=== PATIENT | male | born 1960 | race African-American/Black ===

== ENCOUNTER 2022-06-12 12:36 | Inpatient (IN) | payer MEDICARE, OTHER ==
[~2022-06-12] VITALS: Ht 177.8 cm; Wt 108.9 kg
--- NOTE | 2022-06-12 13:12 | NUR ---
COVID SWAB DONE AND SENT TO LAB
--- NOTE | 2022-06-12 13:12 | NUR ---
URINE COLLECTED AND SENT TO LAB
[2022-06-12] MEDS ORDERED: LEVO25TA7 PO (13:13)
[2022-06-12] MEDS ORDERED: CHLO10TA10 PO (13:13)
[2022-06-12] MEDS ORDERED: OLAN15TA3 PO (13:13)
[2022-06-12] MEDS ORDERED: MAGN400O6 PO (13:13)
[2022-06-12] MEDS ORDERED: CLON1TAB12 PO (13:13)
[2022-06-12] MEDS ORDERED: ATOR10TA PO (13:13)
[2022-06-12] MEDS ORDERED: MULT-188 PO (13:13)
[2022-06-12] MEDS ORDERED: BISA10SU11 RC (13:13)
[2022-06-12] MEDS ORDERED: DIVA500T2 PO (13:13)
[2022-06-12] MEDS ORDERED: LEVE1000 PO (13:13)
[2022-06-12 13:24] LABS: BASOPHILS % (AUTO) 0.4 % (0.0-2.0); EOSINOPHILS % (AUTO) 1.9 % (0.0-6.0); HEMATOCRIT 40 % (39-51); HEMOGLOBIN 12.5 g/dL (13.5-17.5); LYMPHOCYTES # (AUTO) 3.1 K/uL (0.8-4.8); LYMPHOCYTES % (AUTO) 37.1 % (20.0-44.0); MEAN CORPUSCULAR HGB CONC 32 g/dl (31.0-36.0); MEAN CORPUSCULAR VOLUME 88 fL (80-96); MONOCYTES # (AUTO) 0.9 K/uL (0.1-1.30); NEUTROPHILS # (AUTO) 4.1 K/uL (1.8-8.9); NEUTROPHILS % (AUTO) 49.6 % (43.0-81.0); PLATELET COUNT (AUTO) 233 K/uL (150-450); RED BLOOD CELL COUNT(AUTO) 4.47 MIL/uL (4.5-6.0); WHITE BLOOD COUNT (AUTO) 8.3 K/uL (4.3-11.0)
[2022-06-12] MEDS ORDERED: LEVETIRACETAM (500MG) 500 MG in IV NS 0.9% 100 ML IV SCH (13:30)
[2022-06-12 13:39] LABS: CARBON DIOXIDE 32 mmol/L (21-32); CHLORIDE 105 mmol/L (98-107); CREATININE 1.3 mg/dL (0.6-1.3); GLUCOSE 82 mg/dL (74-106); POTASSIUM 4.2 mmol/L (3.5-5.1); SODIUM SERUM 142 mmol/L (136-145); UREA NITROGEN, BLOOD 11 mg/dL (7-18)
[2022-06-12 13:44] LABS: BILIRUBIN,URINE NEGATIVE (NEGATIVE); COLOR,URINE YELLOW (YELLOW); LEUKOCYTE ESTERASE ,URINE NEGATIVE (NEGATIVE); NITRITE, URINE NEGATIVE (NEGATIVE); PROTEIN,URINE NEGATIVE (NEGATIVE); UGLUCOSE NEGATIVE (NEGATIVE); UROBILINOGEN,URINE 0.2 EU/dL (0.2)
[2022-06-12 13:45] LABS: ALANINE AMINOTRANSFERASE 20 U/L (12-78); ALBUMIN 3.2 g/dL (3.4-5.0); ALCOHOL, BLOOD < 3 mg/dL (0-0); ALKALINE PHOSPHATASE 93 U/L (46-116); ASPARTATE AMINOTRANSFERASE 19 U/L (15-37); BILIRUBIN,TOTAL 0.2 mg/dL (0.2-1.0); TOTAL PROTEIN, SERUM 7.7 g/dL (6.4-8.2)
--- NOTE | 2022-06-12 13:49 | NUR ---
TROPONIN 76, MD TREJO AWARE
[2022-06-12 13:57] LABS: BILIRUBIN,DIRECT 0.1 mg/dL (0.0-0.2)
[2022-06-12 14:01] LABS: ACETAMINOPHEN < 10 ug/ml (10-30)
--- NOTE | 2022-06-12 14:09 | NUR ---
EPIC PAGED AND MOVESHEET SUBMITTED.
--- NOTE | 2022-06-12 14:15 | NUR ---
NO KNOWN ALLERGIES PER KARIN SHWETA OJEDA
--- NOTE | 2022-06-12 15:40 | NUR ---
GOT BED 328-1
[2022-06-12 16:09] VITALS: BP 132/78
--- NOTE | 2022-06-12 16:10 | NUR ---
REPORT GIVEN TO MONCHO GARCIA FOR YUSEF
--- NOTE | 2022-06-12 16:30 | NUR ---
TRANSFERRED TO BED 328 IN STABLE CONDITION
[2022-06-12] MEDS ORDERED: BISACODYL SUPP (10 MG) 10 MG/SUPP.RECT SUPP.RECT RC PRN (18:00)
[2022-06-12] MEDS ORDERED: ACETAMINOPHEN 325 MG TABLET PO PRN (18:00)
[2022-06-12] MEDS ORDERED: MAGNESIUM HYDROXIDE 30 ML UDC PO PRN ×2 (18:00)
[2022-06-12] MEDS ORDERED: Z GUARD REMEDY 4 OZ OINT TP PRN (18:00)
[2022-06-12] MEDS ORDERED: MAG HYDROX/AL HYDROX/SIMETH 30 ML UDC PO PRN (18:00)
[2022-06-12] MEDS ORDERED: ONDANSETRON HCL/PF 4 MG/2 ML VIAL IVP PRN (18:00)
--- NOTE | 2022-06-12 19:18 | NUR ---
SCALLOP BINDER CLOSING NOTE PATIENT RECEIVED ON UNIT FROM ED @ 1700 [employer]IA [employer]. A/O X2 AND AMBULATES W/O ASSIST. PATIENT NON-COMPLIANT WITH UNSTEADY GATE. REFUSED TO KEEP SPECIMEN TRANSPORTER ON AT THIS TIME. PATIENT IS INCONTINENT AND WEARS DIAPER. UNABLE TO PROPERLY FINISH ADMISSION PROCESS PATIENT IS UNABLE TO COMPLETE SENTENCES. IV ACCES TO R HAND REMAINS INTACT AT HIS TIME. WILL ENDORSE PATIENT TO ONCOMING SHIFT.
--- NOTE | 2022-06-12 19:30 | NUR ---
RN OPENING NOTES RECEIVED PT ROAMING MONROY, REFUSING TO GO BACK TO ROOM. AOx2. ON RA AND TOLERATING WELL. NO DISTRESS NOTED. WILL CONTINUE PLAN OF CARE.
--- NOTE | 2022-06-12 20:00 | NUR ---
RN NOTES PT ATTEMPTED TO GO DOWN STAIRS BUT WAS PERSUADED TO STAY ON FLOOR. PT BECAME AGITATED. CONTACTED TRACK REPAIR WORKER ASUNCION FOR ORDER FOR 1:1 SITTER. TRACK REPAIR WORKER ASUNCION ALSO ORDERED ATIVAN 1 MG IVP Q6HRS PRN FOR AGITATION.
[2022-06-12] MEDS: LORAZEPAM INJ 2 MG/ML VIAL IV PRN (20:56)
--- NOTE | 2022-06-12 20:56 | NUR ---
RN NOTES ADMINISTERED ATIVAN FOR AGITATION PER ORDER.VS WNL.
[2022-06-12] MEDS: LEVETIRACETAM (250 MG) 250 MG TABLET PO SCH (21:42)
[2022-06-12] MEDS ORDERED: ATORVASTATIN 10 MG TABLET PO SCH (22:00)
[2022-06-12] MEDS ORDERED: OLANZAPINE 10 MG TABLET PO SCH (22:00)
[2022-06-13] MEDS: LORAZEPAM INJ 2 MG/ML VIAL IV PRN ×2 (02:59→14:58)
--- NOTE | 2022-06-13 02:59 | NUR ---
RN NOTES ADMINISTERED ATIVAN FOR AGITATION PER ORDER.VS WNL.
--- NOTE | 2022-06-13 06:50 | NUR ---
RN CLOSING NOTES PT IN ROOM, AWAKE, SITTING UPRIGHT IN CHAIR, WITH SITTER AT BEDSIDE. AOx2. ON RA AND TOLERATING WELL. NO DISTRESS NOTED. ALL ORDERS CARRIED OUT. ALL NEEDS MET. PT KEPT CLEAN AND DRY. WILL ENDORSE TO ONCOMING SHIFT FOR YUSEF.
[2022-06-13 07:12] LABS: BASOPHILS % (AUTO) 0.3 % (0.0-2.0); EOSINOPHILS % (AUTO) 1.2 % (0.0-6.0); HEMATOCRIT 39 % (39-51); HEMOGLOBIN 12.3 g/dL (13.5-17.5); LYMPHOCYTES # (AUTO) 2.1 K/uL (0.8-4.8); LYMPHOCYTES % (AUTO) 28.4 % (20.0-44.0); MEAN CORPUSCULAR HGB CONC 32 g/dl (31.0-36.0); MEAN CORPUSCULAR VOLUME 87 fL (80-96); MONOCYTES # (AUTO) 0.7 K/uL (0.1-1.30); MONOCYTES % (AUTO) 9.7 % (2.0-12.0); NEUTROPHILS # (AUTO) 4.6 K/uL (1.8-8.9); NEUTROPHILS % (AUTO) 60.4 % (43.0-81.0); PLATELET COUNT (AUTO) 251 K/uL (150-450); RED BLOOD CELL COUNT(AUTO) 4.48 MIL/uL (4.5-6.0); WHITE BLOOD COUNT (AUTO) 7.5 K/uL (4.3-11.0)
[2022-06-13 07:34] LABS: CALCIUM, SERUM 8.9 mg/dL (8.5-10.1); CREATININE 1.2 mg/dL (0.6-1.3); PHOSPHORUS 3.5 mg/dL (2.5-4.9); POTASSIUM 4.1 mmol/L (3.5-5.1)
[2022-06-13] MEDS: LEVETIRACETAM (250 MG) 250 MG TABLET PO SCH (08:09)
[2022-06-13] MEDS: DIVALPROEX SODIUM 500 MG TABLET.DR PO SCH ×3 (08:09→13:26)
[2022-06-13] MEDS: clonazePAM 1 MG TABLET PO SCH ×3 (08:10→13:26)
[2022-06-13] MEDS ORDERED: chlorproMAZINE HCL 10 MG TABLET PO SCH (09:00)
[2022-06-13] MEDS ORDERED: MULTIVIT W/MINERALS 1 TAB TABLET PO SCH (09:00)
[2022-06-13] MEDS ORDERED: ASPIRIN 81 MG TAB.CHEW PO SCH (09:00)
[2022-06-13] MEDS ORDERED: LEVOTHYROXINE SODIUM 100 MCG TABLET PO SCH (09:00)
[2022-06-13] MEDS ORDERED: ASPI-1169 PO (11:43)
--- NOTE | 2022-06-13 13:00 | NUR ---
RN NOTES PATIENT CURRENTLY ASLEEP IN NEVILLE CHAIR WITH SITTER AT BEDSIDE. RESPONDS TO VERBAL AND PHYSICAL STIMULI. PATIENT IS TOO LETHARGIC TO TAKE MEDITATION AT THIS TIME. WILL CONTINUE MONITORING
--- NOTE | 2022-06-13 15:35 | NUR ---
STERILISATION TECHNICIAN NOTES PATIENT MEDICALLY STABLE FOR DISCHARGE. VSS. DISCHARGE INSTRUCTIONS PROVIDED TO NURSE TAKING OVER CARE. EXIT PACKET PROVIDED. IV ACCESS REMOVED AND ID BAND REMOVED. ALL BELONGINGS ACCOUNTED FOR AND DOCUMENTS SIGNED. PATIENT TRANSFERRED TO GPS UNIT ACCOMPANIED BY NURSE AND RV REPAIRER.
== END 2022-06-13 15:41 | DRG 280 ==
LOC: ER 12:40 → TELE 15:37 → MED 06-13 11:55
PROVIDERS: ADMIT Internal Medicine; ATTEND Internal Medicine
DX: I21.4 Non-ST elevation (NSTEMI) myocardial infarction (principal); E43 Unspecified severe protein-calorie malnutrition; E11.9 Type 2 diabetes mellitus without complications; G40.909 Epilepsy, unspecified, not intractable, without status epilepticus; F20.9 Schizophrenia, unspecified; E78.5 Hyperlipidemia, unspecified; F32.A Depression, unspecified; Z79.899 Other long term (current) drug therapy; F29 Unspecified psychosis not due to a substance or known physiological condition; E88.09 Other disorders of plasma-protein metabolism, not elsewhere classified; E03.9 Hypothyroidism, unspecified; Z79.890 Hormone replacement therapy; I10 Essential (primary) hypertension
CPT/HCPCS: 36415; 71045-TC; 80048-TC; 80076-TC; 80164-TC; 83735-TC; 84100-TC; 84484-TC; 85025-TC; 87081-TC; C9803; G0378; G0480; J1953; J2060; J7030

== ENCOUNTER 2022-06-13 16:42 | Inpatient (IN) | payer MEDICARE, OTHER ==
[~2022-06-13] VITALS: Ht 177.8 cm; Wt 108.9 kg
[~2022-06-13 16:42] MED LIST: ASPI-1169 PO; ATOR10TA PO; BISA10SU11 RC; CHLO10TA10 PO; CLON1TAB12 PO; DIVA500T2 PO; LEVE1000 PO; LEVO25TA7 PO; MAGN400O6 PO; MULT-188 PO; OLAN15TA3 PO
[2022-06-13] MEDS ORDERED: ACETAMINOPHEN 325 MG TABLET PO PRN (17:00)
[2022-06-13] MEDS ORDERED: BLOOD SUGAR DIAGNOSTIC 1 EACH STRIP IN ONE (17:00)
[2022-06-13] MEDS ORDERED: TEMAZEPAM 7.5 MG CAPSULE PO PRN (17:00)
[2022-06-13] MEDS ORDERED: MAGNESIUM HYDROXIDE 30 ML UDC PO PRN ×2 (17:00→22:00)
[2022-06-13] MEDS ORDERED: MAG HYDROX/AL HYDROX/SIMETH 30 ML UDC PO PRN (17:00)
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
[2022-06-13] MEDS: DIVALPROEX SODIUM 500 MG TABLET.DR PO SCH (17:47)
--- NOTE | 2022-06-13 19:30 | NUR ---
RN OPENING NOTE PATIENT IN BED, EYES CLOSED. EASILY AWAKENED. PATIENT IS A/O X 1 AT THIS TIME, ISOLATIVE. PATIENT DENIES ANY SI/HI. PATIENT IS ON RA, TOLERATING WELL, NO SOB NOTED OR ANY APPARENT DISTRESS. SAFETY MEASURES IN PLACE: BED LOCKED AND IN LOWEST POSITION, BED ALARM ON. WILL MONITOR PATIENT Q15 MIN FOR PATIENT SAFETY. Addendum: 06/13/22 at 2029 by MONY OVIEDO RN PATIENT IS UNCOOPERATIVE.
[2022-06-13 20:00] VITALS: BP 104/52
[2022-06-13] MEDS ORDERED: BISACODYL SUPP (10 MG) 10 MG/SUPP.RECT SUPP.RECT RC PRN (22:00)
[2022-06-14 07:42] LABS: ALBUMIN 3.1 g/dL (3.4-5.0); BILIRUBIN,TOTAL 0.4 mg/dL (0.2-1.0); CALCIUM, SERUM 8.9 mg/dL (8.5-10.1); CREATININE 1.2 mg/dL (0.6-1.3); POTASSIUM 4.5 mmol/L (3.5-5.1); TOTAL PROTEIN, SERUM 7.4 g/dL (6.4-8.2)
[2022-06-14 07:48] LABS: CHOLESTEROL 192 mg/dL (<200); HDL CHOLESTEROL 49 mg/dL (40-60); LDL 112 mg/dL (0-99); TRIGLYCERIDES 140 mg/dL (30-150)
[2022-06-14 08:00] VITALS: BP 115/69
[2022-06-14] MEDS: DIVALPROEX SODIUM 500 MG TABLET.DR PO SCH ×3 (09:38→16:09)
[2022-06-14] MEDS: clonazePAM 0.5 MG TABLET PO SCH ×3 (09:38→16:09)
[2022-06-14] MEDS: LEVOTHYROXINE SODIUM 100 MCG TABLET PO SCH (09:38)
[2022-06-14] MEDS: OLANZAPINE 5 MG TABLET PO SCH ×3 (09:38→16:09)
[2022-06-14] MEDS: LEVETIRACETAM (250 MG) 250 MG TABLET PO SCH ×2 (09:39→21:29)
[2022-06-14] MEDS: MULTIVITAMINS,THERAGRAN 1 UDTAB TABLET PO SCH (09:40)
[2022-06-14] MEDS: ATORVASTATIN 10 MG TABLET PO SCH (09:43)
[2022-06-14] MEDS: ASPIRIN 81 MG TAB.CHEW PO SCH (09:50)
[2022-06-14] MEDS: LORAZEPAM 0.5 MG TABLET PO PRN (14:20)
--- NOTE | 2022-06-14 14:20 | NUR ---
RN NOTE ATIVAN 1 MG PO GIVEN FOR AGITATION/RESTLESSNESS.
[2022-06-14 16:00] VITALS: BP 132/71
--- NOTE | 2022-06-14 18:39 | NUR ---
RN NOTE PATIENT RESTING IN BED. ASLEEP, EASILY AROUSED. A/O X1, VERBALLY RESPONSIVE. NO SIGNS OF ACUTE RESPIRATORY DISTRESS NOTED. COMPLIANT WITH MEDS. WITH EPISODES OF AGITATION, LOOKING FOR HIS MOTHER. PRN LORAZEPAM 1 MG PO GIVEN ORDERED. SAFETY MEASURES MAINTAINED. BED IN LOWEST AND LOCKED POSITION, SIDE RAILS UP, BED ALARM ON. NEEDS ATTENDED. WILL ENDORSE TO NEXT SHIFT FOR CONTINUITY OF CARE.
[2022-06-14 20:17] VITALS: BP 121/65
[2022-06-15] MEDS: LORAZEPAM 0.5 MG TABLET PO PRN (01:08)
--- NOTE | 2022-06-15 01:10 | NUR ---
RN NOTE PATIENT WITH INCREASED AGITATION. GETTING UP OOB, AMBULATING TO HALLWAY, YELLING OUT AT TIMES. ADMINISTERED PRN ATIVAN PER MD ORDERS. Addendum: 06/15/22 at 1533 by CHRISTIAN BUCHANAN RN DISREGARD DOCUMENTATION ABOVE ITS A WRONG PATIENT Addendum: 06/15/22 at 1823 by CHRISTIAN BUCHANAN RN DOCUMENTATION ABOVE IS RIGHT ITS THE RIGHT PATIENT DISREGARD THE ABOVE ADDEMDUM
--- NOTE | 2022-06-15 07:30 | NUR ---
GPS RN OPENING NOTES PATIENT RESTING IN BED. AWAKE, A/O X1, VERBALLY RESPONSIVE NO SIGNS OF ACUTE RESPIRATORY DISTRESS NOTED. PATIENT COOPERATIVE, PLEASANTLY CONFUSED, REDIRECTABLE. SAFETY MEASURES MAINTAINED. BED IN LOWEST AND LOCKED POSITION, SIDE RAILS UP, WILL CONTINUE TO MONITOR
[2022-06-15 08:00] VITALS: BP 134/67
[2022-06-15] MEDS: LEVOTHYROXINE SODIUM 100 MCG TABLET PO SCH (08:07)
[2022-06-15] MEDS: LEVETIRACETAM (250 MG) 250 MG TABLET PO SCH ×2 (08:08→20:37)
[2022-06-15] MEDS: ASPIRIN 81 MG TAB.CHEW PO SCH (08:08)
[2022-06-15] MEDS: DIVALPROEX SODIUM 500 MG TABLET.DR PO SCH ×3 (08:08→17:10)
[2022-06-15] MEDS: OLANZAPINE 5 MG TABLET PO SCH ×3 (08:11→17:10)
[2022-06-15] MEDS: ATORVASTATIN 10 MG TABLET PO SCH (08:11)
[2022-06-15] MEDS: MULTIVITAMINS,THERAGRAN 1 UDTAB TABLET PO SCH (08:18)
[2022-06-15] MEDS: clonazePAM 0.5 MG TABLET PO SCH (08:18)
[2022-06-15 16:00] VITALS: BP 130/68
--- NOTE | 2022-06-15 18:25 | NUR ---
GPS RN CLOSING NOTES PATIENT RESTING IN BED. AWAKE, A/O X1, VERBALLY RESPONSIVE.DUE MEDS GIVEN ORDERED AND COMPLIANT WITH CARE , AMBULATE AD FRANCESCA , NO SIGNS OF ACUTE RESPIRATORY DISTRESS NOTED. PATIENT COOPERATIVE, PLEASANTLY CONFUSED, REDIRECTABLE. SAFETY MEASURES MAINTAINED. BED IN LOWEST AND LOCKED POSITION, SIDE RAILS UP, ENDORSED TO NEXT SHIFT
[2022-06-15 20:24] VITALS: BP 147/68
[2022-06-16] MEDS: TEMAZEPAM 7.5 MG CAPSULE PO PRN ×2 (00:40→23:16)
--- NOTE | 2022-06-16 00:44 | NUR ---
Pt is unable to sleep. Roaming in hallway and in room able to redirect with 1-2 prompts. Pt states, " i can't sleep." Restoril 7.5 mg 1 cap po prn given as ordered. Will continue to monitor.
--- NOTE | 2022-06-16 02:02 | NUR ---
Post 1 hr Restoril effective. Pt asleep in bed easy to arouse. Frequent visual check done for safety. Will continue to monitor.
[2022-06-16] MEDS: LORAZEPAM 0.5 MG TABLET PO PRN (03:11)
--- NOTE | 2022-06-16 03:11 | NUR ---
Pt awake roaming hallways agitated and yelling. Unable to redirect. Least restrictive measures ineffective. Ativan 1 mg po prn given as ordered. Will continue to monitor.
--- NOTE | 2022-06-16 04:15 | NUR ---
Post 1 hr ativan effective. Pt asleep easy to arouse. Will continue to monitor. Frequent visual check done for safety. Will endorse to next shift.
[2022-06-16] MEDS: LEVOTHYROXINE SODIUM 100 MCG TABLET PO SCH (07:39)
[2022-06-16 08:00] VITALS: BP 122/90
[2022-06-16] MEDS: MULTIVITAMINS,THERAGRAN 1 UDTAB TABLET PO SCH (08:32)
[2022-06-16] MEDS: OLANZAPINE 5 MG TABLET PO SCH ×3 (08:32→16:02)
[2022-06-16] MEDS: ASPIRIN 81 MG TAB.CHEW PO SCH (08:32)
[2022-06-16] MEDS: ATORVASTATIN 10 MG TABLET PO SCH (08:32)
[2022-06-16] MEDS: LEVETIRACETAM (250 MG) 250 MG TABLET PO SCH ×2 (08:32→22:11)
[2022-06-16] MEDS: DIVALPROEX SODIUM 500 MG TABLET.DR PO SCH ×3 (08:32→16:02)
--- NOTE | 2022-06-16 09:43 | NUR ---
Individual Therapy: SW attempted to conduct therapy. Pt appeared confused and disorganized. He was unable to have a proper conversation or maintain appropriate eye contact.
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
--- NOTE | 2022-06-16 11:54 | NUR ---
Treatment Plan: Pt appeared confused and disorganized. He was unable to sign the treatment plan.
--- NOTE | 2022-06-16 13:15 | NUR ---
MAINOR Family Contact: SW attempted to contact worker to notify Jocy, unknown relationship, ([phone]) and left a voicemail to discuss relationship with patient.
[2022-06-16 16:00] VITALS: BP 130/90
--- NOTE | 2022-06-16 16:01 | NUR ---
SNF Referral: [phone]. SW sent H & P, progress notes, and medication list.
[2022-06-16 20:00] VITALS: BP 142/80
[2022-06-16 20:01] VITALS: BP 142/80
[2022-06-17] MEDS: LORAZEPAM 0.5 MG TABLET PO PRN ×2 (01:44→10:31)
[2022-06-17] MEDS: LEVOTHYROXINE SODIUM 100 MCG TABLET PO SCH (07:38)
[2022-06-17 08:00] VITALS: BP 151/97
[2022-06-17] MEDS: ASPIRIN 81 MG TAB.CHEW PO SCH (08:51)
[2022-06-17] MEDS: LEVETIRACETAM (250 MG) 250 MG TABLET PO SCH ×2 (08:51→21:19)
[2022-06-17] MEDS: OLANZAPINE 5 MG TABLET PO SCH ×2 (08:51→21:20)
[2022-06-17] MEDS: DIVALPROEX SODIUM 500 MG TABLET.DR PO SCH ×3 (08:51→17:00)
[2022-06-17] MEDS: ATORVASTATIN 10 MG TABLET PO SCH (08:52)
[2022-06-17] MEDS: MULTIVITAMINS,THERAGRAN 1 UDTAB TABLET PO SCH (08:52)
[2022-06-17] MEDS: OLANZAPINE ZYDIS 5 MG TAB.RAPDIS PO PRN (11:15)
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
[2022-06-17] MEDS: chlorproMAZINE HCL 25 MG TABLET PO SCH ×2 (12:52→17:00)
[2022-06-17 16:00] VITALS: BP 123/81
--- NOTE | 2022-06-17 17:41 | NUR ---
RN NOTES 1700 SCHEDULED PILLS DEPAKOTE 500 MG AND THORAZINE 15 MG HELD. PATIENT SLEEPY AND DROWSY.
[2022-06-17 20:15] VITALS: BP 146/76
[2022-06-18] MEDS: LORAZEPAM 0.5 MG TABLET PO PRN ×2 (04:39→12:23)
--- NOTE | 2022-06-18 04:45 | NUR ---
Pt agitated with outburst of yelling. Unable to redirect. Least restrictive measures ineffective. Ativan 1 mg po prn given as ordered. Will continue to monitor.
--- NOTE | 2022-06-18 05:49 | NUR ---
Post 1 hr Ativan effective. Pt calm and quiet. Vital signs wnl. Will continue to monitor. Frequent visual check done for safety. Will endorse to next shift.
[2022-06-18] MEDS: LEVOTHYROXINE SODIUM 100 MCG TABLET PO SCH (07:40)
[2022-06-18 08:00] VITALS: BP 127/74
[2022-06-18] MEDS: DIVALPROEX SODIUM 500 MG TABLET.DR PO SCH ×3 (09:28→16:32)
[2022-06-18] MEDS: ASPIRIN 81 MG TAB.CHEW PO SCH (09:29)
[2022-06-18] MEDS: LEVETIRACETAM (250 MG) 250 MG TABLET PO SCH ×2 (09:29→21:11)
[2022-06-18] MEDS: chlorproMAZINE HCL 25 MG TABLET PO SCH ×2 (09:29→12:23)
[2022-06-18] MEDS: ATORVASTATIN 10 MG TABLET PO SCH (09:29)
[2022-06-18] MEDS: MULTIVITAMINS,THERAGRAN 1 UDTAB TABLET PO SCH (09:38)
--- NOTE | 2022-06-18 14:02 | NUR ---
Court Notification: Pt does not have any supportive contact to notify for 3891.
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
[2022-06-18 16:00] VITALS: BP 156/83
[2022-06-18] MEDS ORDERED: chlorproMAZINE HCL 10 MG TABLET PO SCH (17:00)
--- NOTE | 2022-06-18 18:13 | NUR ---
New order hold Thorazine today, start Thorazine 12.5 mg p.o from tomorrow AM. Noted and carry out.
[2022-06-18] MEDS: OLANZAPINE 5 MG TABLET PO SCH (21:11)
[2022-06-18] MEDS: TEMAZEPAM 7.5 MG CAPSULE PO PRN (23:29)
[2022-06-19] MEDS: LORAZEPAM 0.5 MG TABLET PO PRN ×3 (01:30→22:25)
--- NOTE | 2022-06-19 07:30 | NUR ---
GPS RN OPENING NOTES RECEIVED PATIENT IN BED AWAKE, A/O X1, ABLE TO VERBALIZED NEEDS. DENIES ANY PAIN AT THIS TIME.NO SIGNS OF SOB OR CARDIAC DISTRESS NOTED. PATIENT COOPERATIVE, HAVE EPISODES OF CONFUSIONS AND FORGETFULNESS. SAFETY MEASURES MAINTAINED: BED IN LOWEST AND LOCKED POSITION, SIDE RAILS UP, WILL CONTINUE TO MONITOR FOR ANY CHANGES IN BEHAVIOR.
[2022-06-19] MEDS: LEVOTHYROXINE SODIUM 100 MCG TABLET PO SCH (07:37)
[2022-06-19 08:00] VITALS: BP 127/61
--- NOTE | 2022-06-19 08:05 | NUR ---
SNF Contact: SW received a call from Veronica isabel ([phone]) who stated that pt is accepted at [facility].
[2022-06-19] MEDS: chlorproMAZINE HCL 25 MG TABLET PO SCH ×2 (08:17→16:31)
[2022-06-19] MEDS: DIVALPROEX SODIUM 500 MG TABLET.DR PO SCH ×3 (08:17→16:31)
[2022-06-19] MEDS: ASPIRIN 81 MG TAB.CHEW PO SCH (08:17)
[2022-06-19] MEDS: LEVETIRACETAM (250 MG) 250 MG TABLET PO SCH ×2 (08:17→21:42)
[2022-06-19] MEDS: ATORVASTATIN 10 MG TABLET PO SCH (08:17)
[2022-06-19] MEDS: MULTIVITAMINS,THERAGRAN 1 UDTAB TABLET PO SCH (08:17)
--- NOTE | 2022-06-19 14:16 | NUR ---
RN NOTES: PATIENT IN THE ACTIVITY AREA, NOTED WITH YELLING/SHOUTING. ATIVAN 1MG GIVEN.
[2022-06-19 16:00] VITALS: BP_SYST 134; BP_SYST 154; BP_DIAS 83; BP_DIAS 84
--- NOTE | 2022-06-19 18:48 | NUR ---
GPS RN CLOSING NOTES: PATIENT IN BED ASLEEP IN BED, A/OX1. PATIENT HAD EPISODES OF YELLING AND SHOUTING, ATIVAN 1MG GIVEN AND EFFECTIVE.NO SOB OR CARDIAC DISTRESS NOTED, ON ROOM AIR AND TOLERATING WELL. SAFETY MEASURES MAINTAINED: BED LOCKED AND IN LOWEST POSITION, SIDE RAILS UP X 2. CALL LIGHT IN EASY REACH FOR ASSISTANCE. ENDORSED TO WEDGER AND GLUER FOR YUSEF.
--- NOTE | 2022-06-19 19:27 | NUR ---
GPS RN OPENING NOTES: RECEIVED PATIENT IN ROOM, AWAKE, A/O X1. LABILE, BLUNTED AFFECT, EASILY AGITATED, ANXIOUS, RESTLESS, DISORGANIZED, LOOSE ASSOCIATIONS, UNCOOPERATIVE, SPITTING. POOR INSIGHT, POOR JUDGEMENT, NEEDS FREQUENT REDIRECTION. NO S/S OF DISTRESS. RESPIRATION EVEN AND UNLABORED WITH EQUAL RISE AND FALL OF THE CHEST, ON ROOM AIR. OFFERED FLUID AND SNACKS TOLERATED. BED IN LOWEST POSITION AND LOCKED, SIDE RAILS UP X2 FOR SAFETY. WILL CONTINUE TO MONITOR Q15 FOR MOOD, SAFETY AND BEHAVIOR.
[2022-06-19 20:00] VITALS: BP 135/79
[2022-06-19] MEDS: OLANZAPINE 5 MG TABLET PO SCH (21:42)
--- NOTE | 2022-06-19 22:26 | NUR ---
GPS RN NOTES: PATIENT IS RESTLESS, AGITATED, CONFUSED, REFUSING REDIRECTION. ATIVAN 0.5MG 2TABS GIVEN PO AT 2225. WILL CONTINUE TO MONITOR.
--- NOTE | 2022-06-20 07:29 | NUR ---
GPS RN OPENING NOTE RECEIVED PT AWAKE IN BED. PT A/O X1, CONFUSED, REORIENTED PT NEEDED. NOT IN ANY SIGN OF RESPIRATORY DISTRESS. PT IS CALM WITH NO EPISODE OF BEING AGGRESSIVE TOWARDS STAFF AT THIS TIME. WILL CONTINUE TO MONITOR PT.
[2022-06-20] MEDS: LEVOTHYROXINE SODIUM 100 MCG TABLET PO SCH (07:56)
[2022-06-20 08:00] VITALS: BP 162/83
[2022-06-20] MEDS: chlorproMAZINE HCL 25 MG TABLET PO SCH ×3 (08:20→16:21)
[2022-06-20] MEDS: ATORVASTATIN 10 MG TABLET PO SCH (08:20)
[2022-06-20] MEDS: ASPIRIN 81 MG TAB.CHEW PO SCH (08:20)
[2022-06-20] MEDS: DIVALPROEX SODIUM 500 MG TABLET.DR PO SCH ×3 (08:20→16:21)
[2022-06-20] MEDS: LEVETIRACETAM (250 MG) 250 MG TABLET PO SCH ×2 (08:20→21:19)
[2022-06-20] MEDS: MULTIVITAMINS,THERAGRAN 1 UDTAB TABLET PO SCH (08:21)
[2022-06-20] MEDS: LORAZEPAM 0.5 MG TABLET PO PRN ×2 (12:42→22:00)
--- NOTE | 2022-06-20 12:42 | NUR ---
GPS RN NOTE PT NOTED WITH EPISODES OF BEING ANXIOUS AND AGITATED. PT TRYING TO OPEN DOOR TO GO OUTSIDE THE UNIT. REDIRECTED PT BUT STILL AGITATED. ATIVAN 1MG PO GIVEN ORDERED PRN Q6HR FOR AGITATION. WILL MONITOR AND REASSESS PT.
--- NOTE | 2022-06-20 13:30 | NUR ---
GPS RN NOTE PATIENT IN THE ACTIVITY ROOM WATCHING TELEVISION WHILE EATING SNACKS. A/O X1, CONFUSED, REORIENTED PT NEEDED. PT'S CURRENT BEHAVIOR IS NOW CALM AFTER GIVING ATIVAN 1MG PRN. PT STILL REMAINS DISHEVELED, LABILE, BLUNTED AFFECT, EASILY AGITATED, ANXIOUS, RESTLESS, DISORGANIZED, LOOSE ASSOCIATIONS, UNCOOPERATIVE AND POOR INSIGHT, POOR JUDGEMENT, NEEDS FREQUENT REDIRECTION. NO S/S OF DISTRESS. RESPIRATION EVEN AND UNLABORED, ON ROOM AIR. BED IN LOWEST POSITION AND LOCKED, SIDE RAILS UP X2 FOR SAFETY. WILL CONTINUE TO MONITOR Q15 FOR MOOD, SAFETY AND BEHAVIOR.
[2022-06-20 16:00] VITALS: BP 141/71
--- NOTE | 2022-06-20 18:48 | NUR ---
GPS RN CLOSING NOTE PATIENT RESTING IN BED. A/O X1, CONFUSED, REORIENTED PT NEEDED. PT REMAINS CALM WITH NO EPISODE OF AGGRESSIVENESS OR UNTOWARD BEHAVIOR TOWARDS STAFF AT THIS TIME. PT DOES HAVE OCCASIONAL BEHAVIOR OF DISHEVELED, LABILE, BLUNTED AFFECT, EASILY AGITATED, ANXIOUS, RESTLESS, DISORGANIZED, LOOSE ASSOCIATIONS, UNCOOPERATIVE AND POOR INSIGHT, POOR JUDGEMENT, NEEDS FREQUENT REDIRECTION. NO S/S OF DISTRESS. RESPIRATION EVEN AND UNLABORED, ON ROOM AIR. BED IN LOWEST POSITION AND LOCKED, SIDE RAILS UP X2 FOR SAFETY. WILL ENDORSE TO OPERATORS TEACHER NURSE FOR YUSEF.
--- NOTE | 2022-06-20 19:44 | NUR ---
GPS RN OPENING NOTES: RECEIVED PATIENT AMBULATING IN HALLWAY, A/O X1. LABILE, BLUNTED AFFECT, ANXIOUS, RESTLESS, DISORGANIZED, DISORIENTED, CONFUSED, UNCOOPERATIVE, REPEATEDLY PUSHING ON EXIT DOORS, NEEDS FREQUENT REDIRECTION. POOR INSIGHT, POOR JUDGEMENT. NO S/S OF DISTRESS. RESPIRATION EVEN AND UNLABORED WITH EQUAL RISE AND FALL OF THE CHEST, ON ROOM AIR. OFFERED FLUID AND SNACKS TOLERATED. BED IN LOWEST POSITION AND LOCKED, SIDE RAILS UP X2 FOR SAFETY. WILL CONTINUE TO MONITOR Q15 FOR MOOD, SAFETY AND BEHAVIOR.
[2022-06-20 20:00] VITALS: BP 128/88
[2022-06-20] MEDS: OLANZAPINE 5 MG TABLET PO SCH (21:20)
--- NOTE | 2022-06-20 21:28 | NUR ---
GPS RN NOTES: PATIENT C/O RIGHT SHOULDER PAIN. TYLENOL 650MG GIVEN PO AT 2120. WILL CONTINUE TO MONITOR.
--- NOTE | 2022-06-20 22:01 | NUR ---
GPS RN NOTES: PATIENT IS RESTLESS, AGITATED, CONFUSED, REFUSING REDIRECTION. ATIVAN 0.5MG 2TABS GIVEN PO AT 2200. WILL CONTINUE TO MONITOR.
[2022-06-20] MEDS: OLANZAPINE ZYDIS 5 MG TAB.RAPDIS PO PRN (23:42)
--- NOTE | 2022-06-20 23:49 | NUR ---
GPS RN NOTES: PATIENT IS AGITATED, RESTLESS, TRYING TO PUSH ON EXIT DOOR, DIFFICULT TO REDIRECT. ZYPREXA ZYDIS 5MG GIVEN PO AT 2342. WILL CONTINUE TO MONITOR.
--- NOTE | 2022-06-21 07:00 | NUR ---
GPS RN OPENING NOTES PATIENT LAYING IN BED, A/O X 1, CONFUSED, ANXIOUS, DISORIENTED. NO S/S DISCOMFORT OR RESPIRATORY DISTRESS. SAFETY MEASURES IN PLACE: BED IN LOWEST LOCKED POSITION, SIDE RAILS UP X 2, CALL LIGHT WITHIN REACH. WILL CONTINUE TO MONITOR.
[2022-06-21] MEDS: LEVOTHYROXINE SODIUM 100 MCG TABLET PO SCH (07:29)
[2022-06-21 08:00] VITALS: BP 142/95
[2022-06-21] MEDS: ATORVASTATIN 10 MG TABLET PO SCH (08:56)
[2022-06-21] MEDS: LEVETIRACETAM (250 MG) 250 MG TABLET PO SCH ×2 (08:56→21:21)
[2022-06-21] MEDS: ASPIRIN 81 MG TAB.CHEW PO SCH (08:56)
[2022-06-21] MEDS: DIVALPROEX SODIUM 500 MG TABLET.DR PO SCH ×3 (08:56→16:08)
[2022-06-21] MEDS: chlorproMAZINE HCL 25 MG TABLET PO SCH ×3 (08:58→16:08)
[2022-06-21] MEDS: MULTIVITAMINS,THERAGRAN 1 UDTAB TABLET PO SCH (09:04)
[2022-06-21] MEDS: LORAZEPAM 0.5 MG TABLET PO PRN ×2 (09:52→19:45)
[2022-06-21 16:00] VITALS: BP 141/94
[2022-06-21 20:00] VITALS: BP 153/93
--- NOTE | 2022-06-21 20:08 | NUR ---
RN NOTE: ANXIETY/AGITATION PATIENT IS VERY AGITATED, ANXIOUS, RESTLESS, WANDERING INTO OTHER PATIENT'S ROOMS, NON REDIRECTABLE AT THIS TIME. PRN ATIVAN 1 MG PO ADMINISTERED ORDERED BY .
[2022-06-21 20:29] VITALS: BP 153/93
[2022-06-21] MEDS: OLANZAPINE 5 MG TABLET PO SCH (21:51)
[2022-06-22] MEDS: LORAZEPAM 0.5 MG TABLET PO PRN ×3 (05:51→21:27)
--- NOTE | 2022-06-22 05:54 | NUR ---
RN NOTE: ANXIETY/AGITATION PATIENT IS VERY AGITATED, ANXIOUS, RESTLESS, BANGING ON NEVILLE CHAIR, NON REDIRECTABLE AT THIS TIME. PRN ATIVAN 1 MG PO ADMINISTERED ORDERED BY .
[2022-06-22] MEDS: LEVOTHYROXINE SODIUM 100 MCG TABLET PO SCH (07:44)
[2022-06-22 08:00] VITALS: BP 160/67
[2022-06-22] MEDS: chlorproMAZINE HCL 25 MG TABLET PO SCH ×4 (08:04→18:38)
[2022-06-22] MEDS: DIVALPROEX SODIUM 500 MG TABLET.DR PO SCH ×3 (08:04→17:33)
[2022-06-22] MEDS: MULTIVITAMINS,THERAGRAN 1 UDTAB TABLET PO SCH (08:04)
[2022-06-22] MEDS: ATORVASTATIN 10 MG TABLET PO SCH (08:04)
[2022-06-22] MEDS: LEVETIRACETAM (250 MG) 250 MG TABLET PO SCH ×2 (08:04→21:26)
[2022-06-22] MEDS: ASPIRIN 81 MG TAB.CHEW PO SCH (08:04)
[2022-06-22] MEDS ORDERED: LORAZEPAM INJ 2 MG/ML VIAL IM ONE (15:00)
[2022-06-22 16:00] VITALS: BP 127/70
[2022-06-22 20:22] VITALS: BP 148/82
[2022-06-22] MEDS: OLANZAPINE 5 MG TABLET PO SCH (21:27)
--- NOTE | 2022-06-23 00:46 | NUR ---
Patient refuses weekly skin assessment.
[2022-06-23] MEDS: LEVOTHYROXINE SODIUM 100 MCG TABLET PO SCH (07:50)
[2022-06-23 08:00] VITALS: BP 146/73
[2022-06-23] MEDS: LEVETIRACETAM (250 MG) 250 MG TABLET PO SCH ×2 (08:48→21:19)
[2022-06-23] MEDS: ASPIRIN 81 MG TAB.CHEW PO SCH (08:48)
[2022-06-23] MEDS: chlorproMAZINE HCL 25 MG TABLET PO SCH ×3 (08:48→17:32)
[2022-06-23] MEDS: MULTIVITAMINS,THERAGRAN 1 UDTAB TABLET PO SCH (08:49)
[2022-06-23] MEDS: ATORVASTATIN 10 MG TABLET PO SCH (08:49)
[2022-06-23] MEDS: DIVALPROEX SODIUM 500 MG TABLET.DR PO SCH ×3 (08:49→17:32)
--- NOTE | 2022-06-23 09:00 | NUR ---
RN NOTE- PATIENT AMBULATING IN HALLWAY, A/O X1. LABILE, BLUNTED AFFECT, ANXIOUS, RESTLESS, DISORGANIZED, DISORIENTED, CONFUSED, UNCOOPERATIVE, WANDERING TO OTHER PATIENT'S ROOMS, AGITATED, AGGRESSIVE, NON REDIRECTABLE AT TIMES, PRN ATIVAN GIVEN. POOR INSIGHT, POOR JUDGEMENT. NO S/S OF DISTRESS. RESPIRATION EVEN AND UNLABORED WITH EQUAL RISE AND FALL OF THE CHEST, ON ROOM AIR. OFFERED FLUID AND SNACKS TOLERATED.WILL CONTINUE TO MONITOR Q15 FOR MOOD, SAFETY AND BEHAVIOR.
[2022-06-23 09:27] LABS: BASOPHILS % (AUTO) 0.4 % (0.0-2.0); EOSINOPHILS % (AUTO) 1.9 % (0.0-6.0); HEMATOCRIT 38 % (39-51); HEMOGLOBIN 11.9 g/dL (13.5-17.5); LYMPHOCYTES # (AUTO) 1.8 K/uL (0.8-4.8); LYMPHOCYTES % (AUTO) 28.7 % (20.0-44.0); MEAN CORPUSCULAR HGB CONC 31 g/dl (31.0-36.0); MEAN CORPUSCULAR VOLUME 88 fL (80-96); MONOCYTES # (AUTO) 0.8 K/uL (0.1-1.30); MONOCYTES % (AUTO) 12.6 % (2.0-12.0); NEUTROPHILS # (AUTO) 3.6 K/uL (1.8-8.9); NEUTROPHILS % (AUTO) 56.4 % (43.0-81.0); PLATELET COUNT (AUTO) 206 K/uL (150-450); RED BLOOD CELL COUNT(AUTO) 4.31 MIL/uL (4.5-6.0); WHITE BLOOD COUNT (AUTO) 6.3 K/uL (4.3-11.0)
[2022-06-23 09:56] LABS: ALBUMIN 2.9 g/dL (3.4-5.0); BILIRUBIN,TOTAL 0.2 mg/dL (0.2-1.0); CALCIUM, SERUM 9.3 mg/dL (8.5-10.1); CREATININE 1.1 mg/dL (0.6-1.3); POTASSIUM 4.1 mmol/L (3.5-5.1); TOTAL PROTEIN, SERUM 7.3 g/dL (6.4-8.2)
[2022-06-23] MEDS: OLANZAPINE ZYDIS 5 MG TAB.RAPDIS PO PRN (15:57)
[2022-06-23 16:00] VITALS: BP 137/76
--- NOTE | 2022-06-23 16:11 | NUR ---
RN NOTE- PACING, TRYING TO GET OUT OF DOORS TO UNIT, AGGRESSIVE POSTURING. ZYPREXA 5MG ADMINISTERED
[2022-06-23 20:18] VITALS: BP 154/95
[2022-06-23 20:20] VITALS: BP 158/58
[2022-06-23 20:54] VITALS: BP 154/95
[2022-06-23] MEDS: OLANZAPINE 5 MG TABLET PO SCH (21:58)
[2022-06-24] MEDS: LORAZEPAM 0.5 MG TABLET PO PRN (03:39)
--- NOTE | 2022-06-24 03:45 | NUR ---
RN NOTE: ANXIETY PATIENT IS ANXIOUS, RESTLESS, WANDERING INTO OTHER PATIENT'S ROOMS, NON REDIRECTABLE AT THIS TIME. PRN ATIVAN 1 MG PO ADMINISTERED ORDERED BY .
[2022-06-24 08:00] VITALS: BP 137/65
[2022-06-24] MEDS: chlorproMAZINE HCL 25 MG TABLET PO SCH ×3 (08:54→16:35)
[2022-06-24] MEDS: ASPIRIN 81 MG TAB.CHEW PO SCH (08:55)
[2022-06-24] MEDS: LEVETIRACETAM (250 MG) 250 MG TABLET PO SCH ×2 (08:55→21:16)
[2022-06-24] MEDS: MULTIVITAMINS,THERAGRAN 1 UDTAB TABLET PO SCH (08:55)
[2022-06-24] MEDS: DIVALPROEX SODIUM 500 MG TABLET.DR PO SCH ×3 (08:55→16:35)
[2022-06-24] MEDS: LEVOTHYROXINE SODIUM 100 MCG TABLET PO SCH (08:55)
[2022-06-24] MEDS: ATORVASTATIN 10 MG TABLET PO SCH (09:14)
--- NOTE | 2022-06-24 09:35 | NUR ---
RN NOTE PATIENT ABLE TO TAKE MEDICATIONS WHOLE. PATIENT IS COMPLIANT AND DOES NOT DEMONSTRATE ANY UNTOWARD BEHAVIOR.
--- NOTE | 2022-06-24 14:30 | NUR ---
RN NOTE PATIENT IS VERY AGITATED AND ASKED FOR THORAZINE SHOT IM. MD NOTIFIED WITH ORDERS VERIFIED AND CARRIED OUT. MEDICATION GIVEN ORDERED. PROCEDURE TOLERATED WELL. SAFETY MEASURES ENFORCED. IN STABLE CONDITION. WILL CONTINUE TO MONITOR PATIENT.
[2022-06-24 16:00] VITALS: BP 125/93
[2022-06-24 20:26] VITALS: BP 103/56
[2022-06-24 20:43] VITALS: BP 103/56
[2022-06-24] MEDS: OLANZAPINE 5 MG TABLET PO SCH (22:05)
[2022-06-25 08:00] VITALS: BP 126/79
[2022-06-25] MEDS: LEVOTHYROXINE SODIUM 100 MCG TABLET PO SCH (08:13)
[2022-06-25] MEDS: DIVALPROEX SODIUM 500 MG TABLET.DR PO SCH ×3 (09:10→16:50)
[2022-06-25] MEDS: MULTIVITAMINS,THERAGRAN 1 UDTAB TABLET PO SCH (09:10)
[2022-06-25] MEDS: chlorproMAZINE HCL 25 MG TABLET PO SCH ×3 (09:11→16:49)
[2022-06-25] MEDS: LEVETIRACETAM (250 MG) 250 MG TABLET PO SCH ×2 (09:11→20:56)
[2022-06-25] MEDS: ATORVASTATIN 10 MG TABLET PO SCH (09:11)
[2022-06-25] MEDS: ASPIRIN 81 MG TAB.CHEW PO SCH (09:11)
[2022-06-25] MEDS: OLANZAPINE ZYDIS 5 MG TAB.RAPDIS PO PRN (12:31)
--- NOTE | 2022-06-25 12:32 | NUR ---
RN NOTE: PT AGITATED AT THIS TIME. ZYPREXA PRN GIVEN ORDERED. WILL CONTINUE TO MONITOR.
[2022-06-25 16:00] VITALS: BP 148/87
--- NOTE | 2022-06-25 19:15 | NUR ---
GPS RN NOTES RECEIVED PATIENT IN THE DINING ROOM WATCHING TV. A/OX1. NO S/SX OF ACUTE DISTRESS NOTED. PATIENT IS CALM UPON APPROACH, CONFUSED, COOPERATIVE TO CARE. SAFETY PRECAUTIONS MAINTAINED. WILL CONTINUE TO MONITOR Q15MIN ROUNDS FOR SAFETY AND BEHAVIOR.
[2022-06-25 20:00] VITALS: BP 135/70
[2022-06-25] MEDS: OLANZAPINE 5 MG TABLET PO SCH (21:02)
[2022-06-25] MEDS: LORAZEPAM 0.5 MG TABLET PO PRN (23:07)
[2022-06-26] MEDS: LEVOTHYROXINE SODIUM 100 MCG TABLET PO SCH (07:48)
[2022-06-26] MEDS: LORAZEPAM 0.5 MG TABLET PO PRN ×3 (07:59→23:13)
[2022-06-26 08:00] VITALS: BP 150/87
[2022-06-26] MEDS: ASPIRIN 81 MG TAB.CHEW PO SCH (08:02)
[2022-06-26] MEDS: chlorproMAZINE HCL 25 MG TABLET PO SCH ×3 (08:02→16:25)
[2022-06-26] MEDS: LEVETIRACETAM (250 MG) 250 MG TABLET PO SCH ×2 (08:02→21:40)
[2022-06-26] MEDS: ATORVASTATIN 10 MG TABLET PO SCH (08:03)
[2022-06-26] MEDS: DIVALPROEX SODIUM 500 MG TABLET.DR PO SCH ×4 (08:04→21:39)
[2022-06-26] MEDS: MULTIVITAMINS,THERAGRAN 1 UDTAB TABLET PO SCH (08:04)
--- NOTE | 2022-06-26 08:08 | NUR ---
RN NOTES PT A&0 X 1, AWAKE , AND PATIENT IN THE DINING ROOM WATCHING TV. AWAITING BREAKFAST , HAS NO S/SX OF ACUTE DISTRESS , PATIENT WAS CALM AND APPROACHABLE AT THIS TIME, HAS SOME CONFUSION, COOPERATIVE TO CARE AND RECEPTIVE TO TAKING MEDS PO, NO ASPIRATION NOTED, MAKING BASIC NEEDS KNOWN. SAFETY PRECAUTIONS IN PLACE & MAINTAINED, WILL CONTINUE TO MONITOR Q15MIN DURING ROUNDS FOR SAFETY AND BEHAVIOR.
[2022-06-26 16:00] VITALS: BP 151/74
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
--- NOTE | 2022-06-26 19:25 | NUR ---
GPS RN OPENING NOTES: RECEIVED PATIENT SLEEPING. NO S/S OF DISTRESS. RESPIRATION EVEN AND UNLABORED WITH EQUAL RISE AND FALL OF THE CHEST, ON ROOM AIR. BED IN LOWEST POSITION AND LOCKED, SIDE RAILS UP X2 FOR SAFETY. WILL CONTINUE TO MONITOR Q15 FOR MOOD, SAFETY AND BEHAVIOR.
[2022-06-26] MEDS: OLANZAPINE 5 MG TABLET PO SCH (21:40)
--- NOTE | 2022-06-26 23:18 | NUR ---
GPS RN NOTES: PATIENT IS AGITATED, RESTLESS, ANXIOUS, PACING AND REFUSING REDIRECTION. SECURITY CALLED AND ATIVAN 0.5MG 2TABS GIVEN PO AT 2313. WILL CONTINUE TO MONITOR.
--- NOTE | 2022-06-27 07:00 | NUR ---
GPS RN OPENING NOTES PATIENT LAYING IN BED, AWAKE, A/O X1. LABILE, ANXIOUS, RESTLESS, DISORGANIZED, DISORIENTED, CONFUSED, NEEDS FREQUENT REDIRECTION. NO S/S OF DISTRESS. RESPIRATION EVEN AND UNLABORED WITH EQUAL RISE AND FALL OF THE CHEST, ON ROOM AIR. BED IN LOWEST POSITION AND LOCKED, SIDE RAILS UP X2 FOR SAFETY. WILL CONTINUE TO MONITOR Q15 FOR MOOD, SAFETY AND BEHAVIOR.
[2022-06-27] MEDS: LEVOTHYROXINE SODIUM 100 MCG TABLET PO SCH (07:39)
[2022-06-27 08:00] VITALS: BP 108/73
[2022-06-27] MEDS: ASPIRIN 81 MG TAB.CHEW PO SCH (08:23)
[2022-06-27] MEDS: LEVETIRACETAM (250 MG) 250 MG TABLET PO SCH ×2 (08:23→21:32)
[2022-06-27] MEDS: DIVALPROEX SODIUM 500 MG TABLET.DR PO SCH ×4 (08:23→21:32)
[2022-06-27] MEDS: MULTIVITAMINS,THERAGRAN 1 UDTAB TABLET PO SCH (08:23)
[2022-06-27] MEDS: ATORVASTATIN 10 MG TABLET PO SCH (08:23)
[2022-06-27] MEDS: chlorproMAZINE HCL 25 MG TABLET PO SCH ×3 (08:24→16:23)
[2022-06-27] MEDS: LORAZEPAM 0.5 MG TABLET PO PRN ×2 (10:27→16:23)
[2022-06-27 15:01] LABS: BASOPHILS % (AUTO) 0.3 % (0.0-2.0); EOSINOPHILS % (AUTO) 1.6 % (0.0-6.0); HEMATOCRIT 39 % (39-51); HEMOGLOBIN 12.2 g/dL (13.5-17.5); LYMPHOCYTES % (AUTO) 36.2 % (20.0-44.0); MEAN CORPUSCULAR HGB CONC 31 g/dl (31.0-36.0); MEAN CORPUSCULAR VOLUME 88 fL (80-96); MONOCYTES # (AUTO) 1.4 K/uL (0.1-1.30); MONOCYTES % (AUTO) 16.4 % (2.0-12.0); NEUTROPHILS # (AUTO) 3.8 K/uL (1.8-8.9); NEUTROPHILS % (AUTO) 45.5 % (43.0-81.0); PLATELET COUNT (AUTO) 225 K/uL (150-450); RED BLOOD CELL COUNT(AUTO) 4.44 MIL/uL (4.5-6.0); WHITE BLOOD COUNT (AUTO) 8.4 K/uL (4.3-11.0)
[2022-06-27 15:22] LABS: CALCIUM, SERUM 9.2 mg/dL (8.5-10.1); MAGNESIUM 2.2 mg/dL (1.8-2.4); POTASSIUM 4.2 mmol/L (3.5-5.1)
[2022-06-27 16:00] VITALS: BP 148/76
[2022-06-27 17:31] LABS: BAND % (MANUAL) 1 % (0.0-5.0); EOSINOPHILS % (MANUAL) 1 % (0-4); LYMPHOCYTES % (MANUAL) 31 % (16-48); MONOCYTES % (MANUAL) 11 % (0-11.0); NEUTROPHILS % (MANUAL) 56 (42-76)
--- NOTE | 2022-06-27 18:47 | NUR ---
GPS RN CLOSING NOTES PATIENT SITTING IN CHAIR, AWAKE, A/O X1. LABILE, ANXIOUS, DISORGANIZED, DISORIENTED, CONFUSED, NEEDS FREQUENT REDIRECTION. NO S/S OF DISTRESS. RESPIRATION EVEN AND UNLABORED WITH EQUAL RISE AND FALL OF THE CHEST, ON ROOM AIR. ALL NEEDS MET. WILL ENDORSE TO ACCOUNT LIAISON FOR YUSEF.
[2022-06-27 21:13] VITALS: BP 115/71
[2022-06-27] MEDS: OLANZAPINE 5 MG TABLET PO SCH (21:32)
[2022-06-28] MEDS: LORAZEPAM 0.5 MG TABLET PO PRN ×2 (02:32→22:16)
--- NOTE | 2022-06-28 07:55 | NUR ---
RN OPENING NOTES PATIENT AWAKE IN BED RESTING,A/O X 1, CONFUSED, NEEDS FREQUENT REDIRECTION. NO S/S OF PAIN NOTED AT THIS TIME. ON ROOM AIR NO DISTRESS OR SHORTNESS OF BREATH NOTED. PATIENT IS COMPLIANT WITH MEDICATION AND COOPERATIVE. PATIENT DENIES SUICIDE IDEATIONS AND HOMICIDAL IDEATIONS AT THIS TIME. PATIENT EDUCATED ON THE USE OF THE CALL MILLER. FALL AND SAFETY MEASURES IN PLACE, BED ALARM ON, BED IN LOW LOCK POSITION, CALL LIGHT AND TABLE WITHIN EASY REACH, SIDE RAILS UP X2. WILL CONTINUE TO MONITOR Q15MIN. WITH THE HELP OF STAFF TO MAINTAIN SAFETY.
[2022-06-28 08:00] VITALS: BP 130/72
[2022-06-28] MEDS: ASPIRIN 81 MG TAB.CHEW PO SCH (08:10)
[2022-06-28] MEDS: LEVETIRACETAM (250 MG) 250 MG TABLET PO SCH ×2 (08:10→21:37)
[2022-06-28] MEDS: LEVOTHYROXINE SODIUM 100 MCG TABLET PO SCH (08:10)
[2022-06-28] MEDS: DIVALPROEX SODIUM 500 MG TABLET.DR PO SCH ×4 (08:10→21:37)
[2022-06-28] MEDS: MULTIVITAMINS,THERAGRAN 1 UDTAB TABLET PO SCH (08:10)
[2022-06-28] MEDS: clonazePAM 0.5 MG TABLET PO PRN (08:10)
[2022-06-28] MEDS: chlorproMAZINE HCL 25 MG TABLET PO SCH ×3 (08:11→17:10)
[2022-06-28] MEDS: ATORVASTATIN 10 MG TABLET PO SCH (08:11)
[2022-06-28] MEDS ORDERED: OLANZAPINE 10 MG VIAL IM ONE (13:00)
[2022-06-28] MEDS ORDERED: LORAZEPAM INJ 2 MG/ML VIAL IM ONE (13:00)
--- NOTE | 2022-06-28 13:22 | NUR ---
RN NOTE PATIENT IS AGITATED, RESTLESS, ANXIOUS, PACING, HITTING THE DOOR AND REFUSING REDIRECTION. SECURITY CALLED, DOCTOR WAS IN THE UNIT AND ORDERED ATIVAN 2MG IM AND ZYPREZA 5MG IM, ATIVAN AND ZYPREZA WAS GIVEN AT 1322. WILL CONTINUE TO MONITOR.
[2022-06-28 16:00] VITALS: BP 130/90
--- NOTE | 2022-06-28 20:20 | NUR ---
GPS RN OPENING NOTES PATIENT IN THE GERECHAIR AWAKE, A/O X1. LABILE,DISORGANIZED, DISORIENTED, CONFUSED, NEEDS FREQUENT REDIRECTION.ON RM AIR VINCE WELL, NO SOB/DISTRESS NOTED,BREATHING EVEN AND UNLABORED,BED IN LOWEST POSITION AND LOCKED, SIDE RAILS UP X2 FOR SAFETY. WILL CONTINUE TO MONITOR Q15 FOR MOOD, SAFETY AND BEHAVIOR.
[2022-06-28 20:56] VITALS: BP 126/80
[2022-06-28] MEDS: OLANZAPINE 5 MG TABLET PO SCH (21:37)
[2022-06-29] MEDS: LORAZEPAM 0.5 MG TABLET PO PRN ×2 (05:36→15:35)
[2022-06-29 08:00] VITALS: BP 141/84
[2022-06-29] MEDS: clonazePAM 0.5 MG TABLET PO PRN (08:10)
--- NOTE | 2022-06-29 08:10 | NUR ---
RN NOTE- AGITATED, ANXIOUS, TRYING TO GET OUT OF NEVILLE CHAIR. CLONAZEPAM 0.25 MG ADMINISTERED
--- NOTE | 2022-06-29 09:00 | NUR ---
RN NOTE- PATIENT IS AWAKE, A/O X1. LABILE, ANXIOUS, RESTLESS, DISORGANIZED,DISORIENTED, CONFUSED, NEEDS FREQUENT REDIRECTION. NO S/S OF DISTRESS.RESPIRATION EVEN AND UNLABORED WITH EQUAL RISE AND FALL OF THE CHEST, ON ROOM AIR. BED IN LOWEST POSITION AND LOCKED, SIDE RAILS UP X2 FOR SAFETY. WILL CONTINUE TO MONITOR Q15 FOR MOOD, SAFETY AND BEHAVIOR.
[2022-06-29] MEDS: ATORVASTATIN 10 MG TABLET PO SCH (09:14)
[2022-06-29] MEDS: MULTIVITAMINS,THERAGRAN 1 UDTAB TABLET PO SCH (09:14)
[2022-06-29] MEDS: LEVOTHYROXINE SODIUM 100 MCG TABLET PO SCH (09:14)
[2022-06-29] MEDS: ASPIRIN 81 MG TAB.CHEW PO SCH (09:14)
[2022-06-29] MEDS: LEVETIRACETAM (250 MG) 250 MG TABLET PO SCH ×2 (09:14→21:52)
[2022-06-29] MEDS: chlorproMAZINE HCL 25 MG TABLET PO SCH ×3 (09:14→17:24)
[2022-06-29] MEDS: DIVALPROEX SODIUM 500 MG TABLET.DR PO SCH ×4 (09:14→21:51)
[2022-06-29 14:53] LABS: T4 (THYROXINE) 8.5 ug/dL (4.7-13.3); THYROID STIMULATING HORMONE 7.315 uIU/mL (0.358-3.74)
--- NOTE | 2022-06-29 15:41 | NUR ---
RN NOTE- AGITATED , OOB TRYING TO LEAVE UNIT. ESCORTED TO NEVILLE CHAIR, OPPOSITIONAL YELLING . ATIVAN 1 MG ADMINISTERED
[2022-06-29 16:00] VITALS: BP 140/74
[2022-06-29] MEDS ORDERED: OLANZAPINE 10 MG VIAL IM STA (16:08)
[2022-06-29] MEDS ORDERED: LORAZEPAM INJ 2 MG/ML VIAL IM STA ×2 (16:08→18:35)
--- NOTE | 2022-06-29 16:11 | NUR ---
RN-CO: PT IS BANGING THE TABLE , BREAKING THE GERICHAIR AND SWINGING TO STAFF. CALL DR STOUT FOR ORDERS AND HE ORDERED ZYPREXA 5 MG IM AND ATIVAN 2 MG IM STAT, NOTED AND CARRIED OUT.
--- NOTE | 2022-06-29 16:13 | NUR ---
RN-CO: ATIVAN PO IS INEFFECTIVE.
[2022-06-29] MEDS ORDERED: diphenhydrAMINE HCL 50 MG/ML VIAL IM STA (18:29)
[2022-06-29] MEDS ORDERED: HALOPERIDOL LACTATE INJ 5 MG/ML VIAL IM STA (18:29)
--- NOTE | 2022-06-29 18:40 | NUR ---
RN NOTE-AGGRESSIVE, ATTEMPTING TO BREAK CHAIR AND TRYING TO CLIMB OVER TOP NEVILLE CHAIR , NOT DIRECTABLE. DR STOUT ORDERED HALDOL 5MG, ATIVAN 2 MG AND BENADRYL 50 MG IM STAT. SECURITY CALLED.
--- NOTE | 2022-06-29 19:30 | NUR ---
Pt asleep in kasandra-chair at start of shift without respiratory distress. Respiration even and unlabored. VS- 119/64 BP, 97.6 temp, 17 respiration, 88 pulse, O2 sat @ 100%, No s/s of any kind of distress. Will continue to monitor for respirations. Frequent visual check done for safety.
[2022-06-29 20:35] VITALS: BP 119/64
[2022-06-29] MEDS: OLANZAPINE 5 MG TABLET PO SCH (21:51)
[2022-06-30] MEDS: LORAZEPAM 0.5 MG TABLET PO PRN ×2 (03:47→10:48)
--- NOTE | 2022-06-30 03:48 | NUR ---
Pt awake and yelling. Constantly trying to climb out of kasandra-chair. Agitated and angry. Least restrictive measures ineffective. Unable to redirect. Ativan 1 mg prn given as ordered. Will continue to monitor.
--- NOTE | 2022-06-30 04:53 | NUR ---
Post 1 hr Ativan effective. Pt asleep easy to arouse. VS within normal limit. Respiration even and unlabored @ 17 BPM without SOB noted. No s/s of any kind of distress. Frequent visual check done for safety. Will continue to monitor. Will endorse to next shift
[2022-06-30] MEDS: OLANZAPINE ZYDIS 5 MG TAB.RAPDIS PO PRN (07:23)
--- NOTE | 2022-06-30 07:23 | NUR ---
RN NOTE- PT CLIMBING OOB, AGGRESSIVE, OPPOSITIONAL AND IRRITABLE. ZYPREXA ZYDIS 5MG ADMINISTERED
[2022-06-30 08:00] VITALS: BP 159/90
[2022-06-30] MEDS: DIVALPROEX SODIUM 500 MG TABLET.DR PO SCH ×2 (08:05→13:00)
[2022-06-30] MEDS: ATORVASTATIN 10 MG TABLET PO SCH (08:05)
[2022-06-30] MEDS: LEVETIRACETAM (250 MG) 250 MG TABLET PO SCH ×2 (08:05→21:25)
[2022-06-30] MEDS: ASPIRIN 81 MG TAB.CHEW PO SCH (08:05)
[2022-06-30] MEDS: chlorproMAZINE HCL 25 MG TABLET PO SCH ×3 (08:05→16:17)
[2022-06-30] MEDS: MULTIVITAMINS,THERAGRAN 1 UDTAB TABLET PO SCH (08:05)
[2022-06-30] MEDS: LEVOTHYROXINE SODIUM 100 MCG TABLET PO SCH (08:06)
--- NOTE | 2022-06-30 09:00 | NUR ---
RN NOTE- PATIENT IS AWAKE, A/O X1. LABILE, ANXIOUS, RESTLESS, DISORGANIZED, DISORIENTED, CONFUSED, NEEDS FREQUENT REDIRECTION. NO S/S OF DISTRESS. RESPIRATION EVEN AND UNLABORED WITH EQUAL RISE AND FALL OF THE CHEST, ON ROOM AIR. BED IN LOWEST POSITION AND LOCKED, SIDE RAILS UP X2 FOR SAFETY. WILL CONTINUE TO MONITOR Q15 FOR MOOD, SAFETY AND BEHAVIOR.
--- NOTE | 2022-06-30 10:49 | NUR ---
RN NOTE- NUMEROUS ATTEMPTS GETTING OOB, NOT DIRECTABLE, URINATING ON FLOOR, AGGRESSIVE. ATIVAN 1 MG ADMINISTERED
[2022-06-30 16:00] VITALS: BP 100/71
[2022-06-30] MEDS: DIVALPROEX SODIUM 250 MG TABLET.DR PO SCH (16:25)
--- NOTE | 2022-06-30 19:35 | NUR ---
GPS RN OPENING NOTES: RECEIVED PATIENT SITTING IN NEVILLE CHAIR, AWAKE, A/O X1. LABILE, FLAT AFFECT, DISORGANIZED, DISORIENTED, CONFUSED. PATIENT HAS NO S/S OF DISTRESS. RESPIRATION EVEN AND UNLABORED WITH EQUAL RISE AND FALL OF THE CHEST, ON ROOM AIR. WILL CONTINUE TO MONITOR Q15 FOR MOOD, SAFETY AND BEHAVIOR.
[2022-06-30 20:51] VITALS: BP 125/78
[2022-06-30] MEDS: OLANZAPINE 5 MG TABLET PO SCH (21:25)
[2022-07-01] MEDS: LORAZEPAM 0.5 MG TABLET PO PRN ×3 (00:25→22:24)
--- NOTE | 2022-07-01 00:30 | NUR ---
GPS RN NOTES: PATIENT IS RESTLESS AND ANXIOUS, ATIVAN 1MG GIVEN PO AT 0025. WILL CONTINUE TO MONITOR.
[2022-07-01] MEDS: OLANZAPINE ZYDIS 5 MG TAB.RAPDIS PO PRN (03:40)
--- NOTE | 2022-07-01 03:46 | NUR ---
GPS RN NOTES: PATIENT IS RESTLESS, AGITATED, REFUSING REDIRECTION. ZYPREXA ZYDIS 5MG 1TAB GIVEN PO AT 0340. WILL CONTINUE TO MONITOR.
--- NOTE | 2022-07-01 07:22 | NUR ---
GPS RN CLOSING NOTES: PATIENT IS AWAKE, A/O X1. PATIENT PATIENT SLEPT 1HR THIS SHIFT. PATIENT HAS NO S/S OF DISTRESS AT THIS TIME. RESPIRATION EVEN AND UNLABORED WITH EQUAL RISE AND FALL OF THE CHEST ON ROOM AIR. ALL PATIENT CARE NEEDS HAVE BEEN MET ANTICIPATED. WILL CONTINUE TO MONITOR AND ENDORSE TO AM SHIFT.
--- NOTE | 2022-07-01 07:30 | NUR ---
PATIENT IN NEVILLE CHAIR AWAKE, ON ROOM AIR, BREATHING UNLABORED AND NOT IN ANY FORM OF DISTRESS. APPEARS CALM. ALL SAFETY PRECAUTIONS IN PLACE. WILL CONTINUE TO MONITOR.
[2022-07-01 08:00] VITALS: BP 153/99
[2022-07-01] MEDS: MULTIVITAMINS,THERAGRAN 1 UDTAB TABLET PO SCH (08:27)
[2022-07-01] MEDS: LEVETIRACETAM (250 MG) 250 MG TABLET PO SCH ×2 (08:27→21:33)
[2022-07-01] MEDS: DIVALPROEX SODIUM 500 MG TABLET.DR PO SCH ×2 (08:27→12:18)
[2022-07-01] MEDS: ASPIRIN 81 MG TAB.CHEW PO SCH (08:27)
[2022-07-01] MEDS: ATORVASTATIN 10 MG TABLET PO SCH (08:27)
[2022-07-01] MEDS: LEVOTHYROXINE SODIUM 100 MCG TABLET PO SCH (08:28)
[2022-07-01] MEDS: chlorproMAZINE HCL 25 MG TABLET PO SCH ×3 (08:28→16:20)
--- NOTE | 2022-07-01 11:54 | NUR ---
RN NOTE PATIENT OBSERVED TO BE INCREASINGLY AGITATED. ATIVAN GIVEN. WILL CONTINUE TO MONITOR FOR SAFETY.
--- NOTE | 2022-07-01 15:55 | NUR ---
RN NOTE PATIENT REMAINS STABLE OF THIS TIME. PATIENT IS SITTING ON NEVILLE CHAIR IN THE ACTIVITY ROOM AND IS OBSERVED TO BE CALM AND QUIET. WILL CONTINUE TO MONITOR.
[2022-07-01 16:00] VITALS: BP 152/90
[2022-07-01] MEDS: DIVALPROEX SODIUM 250 MG TABLET.DR PO SCH (16:20)
--- NOTE | 2022-07-01 18:40 | NUR ---
RN CLOSING NOTE PATIENT REMAINED STABLE THROUGHOUT SHIFT. OF THIS TIME, PATIENT IS SITTING PATIENT APPEARS CALM AND IS COMPLIANT WITH MEDICATIONS, ALERT AND ORIENTED X 1. BREATHING UNLABORED AND NOT IN ANY FORM OF DISTRESS. ALL SAFETY PRECAUTIONS KEPT IN PLACE. WILL ENDORSE TO IN STORE REPRESENTATIVE NURSE.
--- NOTE | 2022-07-01 19:57 | NUR ---
GPS RN OPENING NOTES: RECEIVED PATIENT IN HALLWAY SITTING IN NEVILLE CHAIR, AWAKE, A/O X1. LABILE, FLAT AFFECT, DISORGANIZED, DISORIENTED, CONFUSED, ANXIOUS, RESTLESS, YELLS INTERMITTENTLY. PATIENT HAS NO S/S OF DISTRESS. RESPIRATION EVEN AND UNLABORED WITH EQUAL RISE AND FALL OF THE CHEST, ON ROOM AIR. WILL CONTINUE TO MONITOR Q15 FOR MOOD, SAFETY AND BEHAVIOR.
[2022-07-01 20:08] VITALS: BP 143/80
[2022-07-01] MEDS: OLANZAPINE 5 MG TABLET PO SCH (21:33)
--- NOTE | 2022-07-01 22:25 | NUR ---
GPS RN NOTES: PATIENT IS RESTLESS AND ANXIOUS, ATIVAN 1MG GIVEN PO AT 2224. WILL CONTINUE TO MONITOR.
--- NOTE | 2022-07-02 07:19 | NUR ---
GPS RN NOTES RECEIVED PT RESTING IN BED, NO S/S OF SOB OR DISTRESS NOTED. PATIENT A/Ox1, CONFUSED. WILL ENCOURAGE VERBALIZATION OF FEELINGS. SAFETY PRECAUTIONS MAINTAINED. WILL CONTINUE TO MONITOR THROUGHOUT SHIFT.
[2022-07-02 08:00] VITALS: BP 150/90
[2022-07-02] MEDS: DIVALPROEX SODIUM 500 MG TABLET.DR PO SCH ×2 (08:18→13:05)
[2022-07-02] MEDS: MULTIVITAMINS,THERAGRAN 1 UDTAB TABLET PO SCH (08:18)
[2022-07-02] MEDS: ATORVASTATIN 10 MG TABLET PO SCH (08:18)
[2022-07-02] MEDS: LEVOTHYROXINE SODIUM 100 MCG TABLET PO SCH (08:18)
[2022-07-02] MEDS: LEVETIRACETAM (250 MG) 250 MG TABLET PO SCH ×2 (08:18→21:50)
[2022-07-02] MEDS: chlorproMAZINE HCL 25 MG TABLET PO SCH ×4 (08:18→17:00)
[2022-07-02] MEDS: ASPIRIN 81 MG TAB.CHEW PO SCH (08:21)
[2022-07-02] MEDS: OLANZAPINE ZYDIS 5 MG TAB.RAPDIS PO PRN (11:21)
--- NOTE | 2022-07-02 11:34 | NUR ---
Court Notification: Patient does not have any supportive contact.
--- NOTE | 2022-07-02 11:36 | NUR ---
RN NOTES PATIENT AGITATED, ATTEMPTED NON-PHARM TREATMENTS, BUT ATTEMPTS UNSUCCESSFUL. PRN ZYPREXA ADMINISTERED. WILL CONTINUE TO MONITOR.
--- NOTE | 2022-07-02 13:31 | NUR ---
Court Hearing: Patient's [address] was today and it was upheld for GD.
[2022-07-02 16:00] VITALS: BP 137/80
[2022-07-02] MEDS: DIVALPROEX SODIUM 250 MG TABLET.DR PO SCH ×2 (16:35→17:00)
[2022-07-02] MEDS ORDERED: OLANZAPINE 2.5 MG TABLET PO SCH (17:00)
--- NOTE | 2022-07-02 18:17 | NUR ---
RN NOTES PATIENT REFUSED EVENING MEDICATION, SLEEPING, UNABLE TO AROUSE LONG ENOUGH SAFELY ADMINISTER MEDICATION. HOLDING HE IS SEDATED AT THIS TIME.
--- NOTE | 2022-07-02 19:50 | NUR ---
ELECTRIC DEICER INSPECTOR NOTES: PATIENT IS IN HIS ROOM, LAYING IN BED. AWAKE, A/O X1. LABILE, DISORGANIZED, DISORIENTED, AND CONFUSED. PATIENT HAS NO S/SX OF DISTRESS AT THIS TIME. SAFETY MEASURES IN PLACE. WILL CONTINUE TO MONITOR Q15 MIN FOR SAFETY AND BEHAVIOR.
[2022-07-02] MEDS: OLANZAPINE 5 MG TABLET PO SCH (21:54)
[2022-07-03] MEDS: LORAZEPAM 0.5 MG TABLET PO PRN ×2 (04:14→13:36)
[2022-07-03] MEDS: OLANZAPINE ZYDIS 5 MG TAB.RAPDIS PO PRN (07:15)
--- NOTE | 2022-07-03 07:18 | NUR ---
RN NOTE- PT OPPOSITIONAL AGITATED. ZYPREXA 5MG ADMINISTERED
[2022-07-03 08:00] VITALS: BP 124/77
--- NOTE | 2022-07-03 08:02 | NUR ---
MAINOR Discharge Note: Patient will be discharged to [facility] located at [id number] [place] [id number]; ([phone]) via ambulance. Veronica isabel from [facility] ([phone]) accepted pt and is welcoming pt today. Pt has no supportive contact. Pt appears to be alert and oriented x1. Pt denies visual/auditory hallucinations. Pt denies denies suicidal or homicidal ideation. Patient will continue to follow-up with (Psychiatrist) Dr. Newman [address], [place] [address]; ([phone]). (Hospital Aides And Assistants Teacher) Dr. Bingham [email or web address] [facility] [id number], [place] [address]; ([phone]). Addendum: 07/03/22 at 1443 by MAINOR WALDRON Discharge canceled due to facility unable to take pt.
[2022-07-03] MEDS: ASPIRIN 81 MG TAB.CHEW PO SCH (08:13)
[2022-07-03] MEDS: LEVETIRACETAM (250 MG) 250 MG TABLET PO SCH (08:13)
[2022-07-03] MEDS: LEVOTHYROXINE SODIUM 100 MCG TABLET PO SCH (08:13)
[2022-07-03] MEDS: DIVALPROEX SODIUM 500 MG TABLET.DR PO SCH ×2 (08:13→12:08)
[2022-07-03] MEDS: chlorproMAZINE HCL 25 MG TABLET PO SCH ×2 (08:13→12:07)
[2022-07-03] MEDS: MULTIVITAMINS,THERAGRAN 1 UDTAB TABLET PO SCH (08:13)
[2022-07-03] MEDS: ATORVASTATIN 10 MG TABLET PO SCH (08:13)
[2022-07-03] MEDS: OLANZAPINE 2.5 MG TABLET PO SCH ×2 (09:00→12:07)
--- NOTE | 2022-07-03 09:00 | NUR ---
RN NOTE- PATIENT IS IN HALLWAY SITTING IN NEVILLE CHAIR, AWAKE, A/O X1. LABILE, BLUNTED AFFECT, DISORGANIZED, DISORIENTED, CONFUSED, ANXIOUS, RESTLESS, YELLING INTERMITTENTLY. NEEDS CONSTANT REDIRECTION. PATIENT HAS NO S/S OF DISTRESS. RESPIRATION EVEN AND UNLABORED WITH EQUAL RISE AND FALL OF THE CHEST, ON ROOM AIR. OFFERED FLUID AND SNACKS TOLERATED. WILL CONTINUE TO MONITOR Q15 FOR MOOD, SAFETY AND BEHAVIOR.
--- NOTE | 2022-07-03 13:36 | NUR ---
RN NOTE- AGITATED, RESTLESS. ATIVAN 1 MG ADMINISTERED
--- NOTE | 2022-07-03 14:43 | NUR ---
SW Updated Discharge Note: [place] [address]; ([phone]). Please provide transportation. Patient does not have any supportive contact. [facility] ([phone]) accepted pt and is welcomed today. Patient denies visual/auditory hallucinations. Patient denies suicidal or homicidal ideation. Patient will follow up with (Denture Packer) Dr. Holly located at [address] [place] [address]; ([phone]) and (Psychiatrist) Dr. Hinkle [address] [place] [address]; ([phone]). Patient presents with euthymic mood.
[2022-07-03 16:00] VITALS: BP 133/55
--- NOTE | 2022-07-03 16:10 | NUR ---
PT DC NOTE- REPORT PHONED TO [facility]. PADMINI SPARKS RN. PT ALERT ORIENTED TO PERSON, CALM, DIRECTABLE. VS STABLE. ID [id number] REMOVED. ESCORTED OFF UNIT BY STAFF.
== END 2022-07-03 16:10 | DRG 885 ==
LOC: GPS 16:42
PROVIDERS: ADMIT Psychiatry & Neurology Psychosomatic Medicine
DX: F25.0 Schizoaffective disorder, bipolar type (principal); F01.50 Vascular dementia, unspecified severity, without behavioral disturbance, psychotic disturbance, mood disturbance, and anxiety; E43 Unspecified severe protein-calorie malnutrition; I21.4 Non-ST elevation (NSTEMI) myocardial infarction; E66.2 Morbid (severe) obesity with alveolar hypoventilation; F29 Unspecified psychosis not due to a substance or known physiological condition; G40.909 Epilepsy, unspecified, not intractable, without status epilepticus; E03.9 Hypothyroidism, unspecified; E78.5 Hyperlipidemia, unspecified; Z79.899 Other long term (current) drug therapy; Z79.82 Long term (current) use of aspirin; Z73.6 Limitation of activities due to disability; F41.9 Anxiety disorder, unspecified; E88.09 Other disorders of plasma-protein metabolism, not elsewhere classified; Z68.34 Body mass index [BMI] 34.0-34.9, adult; Z91.89 Other specified personal risk factors, not elsewhere classified
CPT/HCPCS: 36415; 70450-TC; 71045-TC; 80048-TC; 80053-TC; 80061-TC; 80164-TC; 82140-TC; 82607-TC; 83735-TC; 83880; 84100-TC; 84436-TC; 84443-TC; 85025-TC; J1200; J1630; J2060; J3230; J3490; Q0161

== ENCOUNTER 2023-05-11 17:56 | Emergency (ER) | payer MEDICARE, OTHER ==
[~2023-05-11] VITALS: Ht 177.8 cm; Wt 95.3 kg
[2023-05-11 18:12] VITALS: TEMP 98.2
--- NOTE | 2023-05-11 18:12 | NUR ---
PATIENT CAME WITH SWALLOWED POPSICLE .ON ROOM AIR.ALERT AND ORIENTED*2.ATTACHED TO MONITOR .
--- NOTE | 2023-05-11 19:00 | NUR ---
pt to ct scan via [facility]
--- NOTE | 2023-05-11 19:11 | NUR ---
pt back from ct via [facility]
--- NOTE | 2023-05-11 20:24 | NUR ---
[facility] ETA: 60-75 MIN
--- NOTE | 2023-05-11 20:58 | NUR ---
REPORT GIVEN TO BRAYAN GARCIA; MADE AWARE PATIENT IS RETURNING BACK TO [facility] WITH ETA 60-75MIN.
--- NOTE | 2023-05-11 21:36 | NUR ---
[facility] AT BED SIDE
[2023-05-11 22:31] VITALS: BP 121/72; O2SAT 98
== END 2023-05-11 22:31 ==
LOC: ER 18:03
DX: Z71.1 Person with feared health complaint in whom no diagnosis is made (principal); G40.909 Epilepsy, unspecified, not intractable, without status epilepticus; I10 Essential (primary) hypertension; E11.9 Type 2 diabetes mellitus without complications; Z79.899 Other long term (current) drug therapy
CPT/HCPCS: 71250-TC

== ENCOUNTER 2025-07-12 18:17 | Inpatient (IN) | payer MEDICARE, OTHER ==
[~2025-07-12] VITALS: Ht 177.8 cm; Wt 83.9 kg
[2025-07-12] MEDS ORDERED: HYDR-3980 PO (19:36)
[2025-07-12] MEDS ORDERED: HALO5TAB8 PO (19:36)
[2025-07-12] MEDS ORDERED: VALP250S3 PO (19:36)
[2025-07-12] MEDS ORDERED: LORA-259 PO (19:36)
[2025-07-12] MEDS ORDERED: ASPI-1169 PO (19:36)
[2025-07-12] MEDS ORDERED: QUET200T PO (19:36)
[2025-07-12] MEDS ORDERED: CARB1TAB21 PO (19:36)
[2025-07-12] MEDS ORDERED: METF-440 PO (19:36)
[2025-07-12] MEDS ORDERED: ACET325T53 PO (19:36)
[2025-07-12] MEDS ORDERED: LEVO150T8 PO (19:36)
[2025-07-12] MEDS ORDERED: AMIT10TA6 PO (19:36)
[2025-07-12] MEDS ORDERED: AMLO-213 PO (19:36)
[2025-07-12] MEDS ORDERED: BENZ1TAB7 PO (19:36)
[2025-07-12] MEDS ORDERED: FAMO20TA8 PO (19:36)
[2025-07-12] MEDS ORDERED: LACT10SO29 PO (19:36)
[2025-07-12 19:41] LABS: PLATELET COUNT (AUTO) 190 K/uL (150-450); RED BLOOD CELL COUNT(AUTO) 4.00 MIL/uL (4.5-6.0); RED CELL DISTRIBUTION WIDTH 16.0 % (11.5-15.0); WHITE BLOOD COUNT (AUTO) 8.4 K/uL (4.3-11.0)
[2025-07-12 19:45] LABS: CALCIUM, SERUM 9.1 mg/dL (8.5-10.1); CREATININE 1.1 mg/dL (0.6-1.3); SODIUM SERUM 138 mmol/L (136-145); UREA NITROGEN, BLOOD 13 mg/dL (7-18)
[2025-07-12 19:52] LABS: ASPARTATE AMINOTRANSFERASE 13 U/L (15-37); TOTAL PROTEIN, SERUM 7.5 g/dL (6.4-8.2)
[2025-07-12 20:33] LABS: APPEARANCE,URINE CLEAR (CLEAR); BLOOD, URINE TRACE-INTA Ery/uL (NEGATIVE); LEUKOCYTE ESTERASE ,URINE NEGATIVE (NEGATIVE); NITRITE, URINE NEGATIVE (NEGATIVE); UGLUCOSE NEGATIVE (NEGATIVE)
[2025-07-12 20:38] LABS: ADD URINE CULTURE YES; SQUAMOUS EPITHELIAL CELL,UR 0-2 /HPF (None Seen)
[2025-07-12 20:44] LABS: AMPHETAMINE, URINE NEGATIVE (NEGATIVE); BARBITURATE, URINE NEGATIVE (NEGATIVE); BENZODIAZEPINE, URINE NEGATIVE (NEGATIVE); CANNABINOID, URINE NEGATIVE (NEGATIVE); COCCAINE, URINE NEGATIVE (NEGATIVE); OPIATE, URINE NEGATIVE (NEGATIVE)
[2025-07-13] MEDS ORDERED: ATORVASTATIN 10 MG TABLET ONE (00:08)
[2025-07-13] MEDS: ATORVASTATIN 10 MG TABLET PO SCH (00:10)
[2025-07-13 00:30] VITALS: BP 114/77; TEMP 97.7; O2SAT 97
[2025-07-13] MEDS ORDERED: MAG HYDROX/AL HYDROX/SIMETH 30 ML UDC PO PRN (00:30)
[2025-07-13] MEDS ORDERED: MAGNESIUM HYDROXIDE 30 ML UDC PO PRN (00:30)
[2025-07-13] MEDS ORDERED: TEMAZEPAM 7.5 MG CAPSULE PO PRN (00:30)
[2025-07-13] MEDS ORDERED: ACETAMINOPHEN 325 MG TABLET PO PRN (00:30)
[2025-07-13] MEDS: CARBIDOPA/LEVODOPA 25/100 MG 1 UDTAB PO SCH (00:44)
[2025-07-13] MEDS: BLOOD SUGAR DIAGNOSTIC 1 EACH STRIP IN ONE (00:44)
[2025-07-13] MEDS: LORAZEPAM 1 MG TABLET PO PRN (02:36)
[2025-07-13 08:00] VITALS: BP 132/85; TEMP 98.6; O2SAT 97
[2025-07-13] MEDS: LEVOTHYROXINE SODIUM 75 MCG TABLET PO SCH (08:27)
[2025-07-13] MEDS: FAMOTIDINE (20 MG) 20 MG TABLET PO SCH (08:27)
[2025-07-13] MEDS: ASPIRIN 81 MG TAB.CHEW PO SCH (08:49)
[2025-07-13] MEDS: METFORMIN 500 MG TABLET PO SCH (08:49)
[2025-07-13] MEDS: AMLODIPINE BESYLATE 10 MG TABLET PO SCH (08:50)
[2025-07-13] MEDS: VALPROIC ACID 250 MG/5 ML UDC PO SCH (09:00)
[2025-07-13 16:00] VITALS: BP 136/98; TEMP 98.6; O2SAT 98
[2025-07-13 20:00] VITALS: BP 138/110; TEMP 97.9; O2SAT 99
[2025-07-14 07:43] LABS: CREATININE 1.2 mg/dL (0.6-1.3)
[2025-07-14 07:59] LABS: ASPARTATE AMINOTRANSFERASE 15.0 U/L (15-37); CALCIUM, SERUM 9.7 mg/dL (8.5-10.1); CREATININE 1.2 mg/dL (0.6-1.3); SODIUM SERUM 133.0 mmol/L (136-145); TOTAL PROTEIN, SERUM 8.6 g/dL (6.4-8.2); UREA NITROGEN, BLOOD 14.0 mg/dL (7-18)
[2025-07-14 08:00] VITALS: BP 172/87; TEMP 98; O2SAT 94
[2025-07-14 08:02] LABS: LDL 114 mg/dL (0-99)
[2025-07-14] MEDS: HYDROCHLOROTHIAZIDE 25 MG TABLET PO SCH (11:51)
[2025-07-14 16:17] VITALS: BP 156/76; TEMP 98; O2SAT 97
[2025-07-14 20:00] VITALS: BP 156/98; TEMP 98; O2SAT 100
[2025-07-14] MEDS: ATORVASTATIN 40 MG TABLET PO SCH (21:44)
[2025-07-15 08:17] VITALS: BP 174/90; TEMP 97.7; O2SAT 97
[2025-07-15 10:25] VITALS: BP 123/82
[2025-07-15 16:05] VITALS: BP 141/93; TEMP 98; O2SAT 100
[2025-07-15 20:47] VITALS: BP 122/80; TEMP 98; O2SAT 96
[2025-07-15] MEDS: TEMAZEPAM 7.5 MG CAPSULE PO PRN (23:26)
[2025-07-16 08:00] VITALS: BP 117/93; TEMP 98.1; O2SAT 95
[2025-07-16 15:11] VITALS: BP 130/82; TEMP 97.9; O2SAT 97
[2025-07-16 20:33] VITALS: BP 150/90; TEMP 97.9; O2SAT 96
[2025-07-17] MEDS: LORAZEPAM 0.5 MG TABLET PO PRN (02:38)
[2025-07-17 08:00] VITALS: BP 126/83; TEMP 97.8; O2SAT 96
[2025-07-17 19:48] VITALS: BP 118/91; TEMP 97.9; O2SAT 98
[2025-07-18 08:00] VITALS: BP 122/97; TEMP 97.8; O2SAT 98
[2025-07-18 16:00] VITALS: BP 130/90; TEMP 98; O2SAT 98
[2025-07-18 20:15] VITALS: BP 125/90; TEMP 98.3; O2SAT 100
[2025-07-19 08:00] VITALS: BP 135/92; TEMP 98; O2SAT 99
[2025-07-19 16:00] VITALS: BP 126/80; TEMP 98.7; O2SAT 98
[2025-07-19 20:00] VITALS: BP 98/78; TEMP 97.4; O2SAT 98
[2025-07-20 08:00] VITALS: BP 129/73; TEMP 97.8; O2SAT 98
[2025-07-20 16:00] VITALS: BP 125/88; TEMP 98.6; O2SAT 98
[2025-07-20 19:59] VITALS: BP 113/72; TEMP 98.5; O2SAT 98
[2025-07-21 08:00] VITALS: BP 124/82; TEMP 98.1; O2SAT 100
[2025-07-21 15:58] VITALS: BP 149/98; TEMP 97.8; O2SAT 99
[2025-07-21 20:40] VITALS: BP 130/85; TEMP 98.2; O2SAT 98
[2025-07-22 08:00] VITALS: BP 137/94; TEMP 97.7; O2SAT 98
[2025-07-22 16:00] VITALS: BP 141/64; TEMP 97.8; O2SAT 98
[2025-07-22 20:13] VITALS: BP 138/85; TEMP 98.2; O2SAT 98
[2025-07-22 21:46] VITALS: BP 125/80; TEMP 98; O2SAT 98
[2025-07-23 08:00] VITALS: BP 120/88; TEMP 98.1; O2SAT 98
[2025-07-23 09:06] VITALS: BP 147/95
[2025-07-23 15:54] VITALS: BP 125/78; TEMP 97.9; O2SAT 99
[2025-07-23 20:12] VITALS: BP 129/92; TEMP 98.1; O2SAT 99
[2025-07-24 08:28] VITALS: BP 113/76; TEMP 98.1; O2SAT 100
[2025-07-24 16:00] VITALS: BP 128/98; TEMP 98.6; O2SAT 100
[2025-07-24 19:43] VITALS: BP 129/96; TEMP 98.4; O2SAT 100
[2025-07-25 08:00] VITALS: BP 125/84; TEMP 97.8; O2SAT 97
[2025-07-25 16:06] VITALS: BP 126/88; TEMP 97.9; O2SAT 100
[2025-07-25 19:43] VITALS: BP 105/80; TEMP 98.6; O2SAT 100
[2025-07-26 08:00] VITALS: BP 99/71; TEMP 97.7; O2SAT 98
[2025-07-26 16:00] VITALS: BP 108/66; TEMP 98.8; O2SAT 97
== END 2025-07-26 14:30 | DRG 885 ==
LOC: ER 18:27 → GPS 22:06
PROVIDERS: ADMIT Nurse Practitioner Psychiatric/Mental Health
DX: F29 Unspecified psychosis not due to a substance or known physiological condition (principal); N18.9 Chronic kidney disease, unspecified; E44.1 Mild protein-calorie malnutrition; F02.83 Dementia in other diseases classified elsewhere, unspecified severity, with mood disturbance; F02.82 Dementia in other diseases classified elsewhere, unspecified severity, with psychotic disturbance; F02.818 Dementia in other diseases classified elsewhere, unspecified severity, with other behavioral disturbance; D63.8 Anemia in other chronic diseases classified elsewhere; G40.909 Epilepsy, unspecified, not intractable, without status epilepticus; G20.A1 Parkinson's disease without dyskinesia, without mention of fluctuations; I12.9 Hypertensive chronic kidney disease with stage 1 through stage 4 chronic kidney disease, or unspecified chronic kidney disease; E03.9 Hypothyroidism, unspecified; E78.5 Hyperlipidemia, unspecified; K21.9 Gastro-esophageal reflux disease without esophagitis; F20.0 Paranoid schizophrenia; E11.22 Type 2 diabetes mellitus with diabetic chronic kidney disease; F41.9 Anxiety disorder, unspecified; E88.09 Other disorders of plasma-protein metabolism, not elsewhere classified; Z79.84 Long term (current) use of oral hypoglycemic drugs; Z79.899 Other long term (current) drug therapy; Z79.82 Long term (current) use of aspirin; Z79.890 Hormone replacement therapy; Z73.6 Limitation of activities due to disability
CPT/HCPCS: 36415; 80048-TC; 80053-TC; 80061-TC; 80076-TC; 80164-TC; 81001; 82140-TC; 82565-TC; 82962-TC; 85025-TC; 87081-TC; 87086-TC; 92526; 92611; 97110-TC; 97112-TC; 97116-TC; 97530-TC